=== PATIENT | female | born 1980 | race Caucasian/White ===

== ENCOUNTER 2018-11-05 15:12 | Emergency (ER) | payer OTHER ==
--- NOTE | 2018-11-05 16:27 | EDM.PDOC ---
ED HPI GENERAL MEDICAL PROBLEM - General Chief Complaint: SORT MANAGER Problem Stated Complaint: POSSIBLE MISCARRIAGE Time Seen by Provider: 11/05/18 15:34 Source of Information: Reports: Patient History Limitations: Reports: No Limitations - History of Present Illness INITIAL COMMENTS - FREE TEXT/NARRATIVE: Pt noticed vaginal bleeding today Is approximately 12 weeks HAs been seen in [place] for the Some mild cramping Onset: Sudden Duration: Hour(s):, Getting Worse Location: Reports: Abdomen, Pelvis - Related Data Allergies Allergy/AdvReac Type Severity Reaction Status Date / Time amoxicillin [From Augmentin] Allergy Hives Verified 11/05/18 15:52 clavulanic acid Allergy Hives Verified 11/05/18 15:52 [From Augmentin] Sulfa (Sulfonamide Allergy Hives Verified 11/05/18 15:52 Antibiotics) Home Meds: Home Meds PNV95/Ferrous Fumarate/FA [ Tablet] 1 each PO DAILY 11/05/18 [History] 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: Social & Family History - Tobacco Use Smoking Status *Q: Unknown Ever Smoked ED ROS GENERAL - Review of Systems Review Of Systems: See Below HEENT: Reports: No Symptoms Respiratory: Reports: No Symptoms Cardiovascular: Reports: No Symptoms : Reports: Other (Vaginal bleeding) ED EXAM - Physical Exam Exam: See Below GI/Abdominal Exam: Tender Course - Vital Signs Last Recorded V/S: Last Vital Signs Temp 37.3 C 11/05/18 15:25 Pulse 83 11/05/18 15:25 Resp 16 11/05/18 15:25 BP 107/74 11/05/18 15:25 Pulse Ox 99 11/05/18 15:25 - Orders/Labs/Meds Orders: Active Orders 24 hr Category Date Time Status [facility] [REF] Stat Lab 11/05/18 15:55 Received Labs: Laboratory Tests 11/05/18 Range/Units 15:55 WBC 8.0 (4.0-10.0) x10^3/uL RBC 4.33 (4.00-5.50) x10^6/uL Hgb 13.1 (12.0-16.0) g/dL Hct 38.2 (33.0-47.0) % MCV 88.2 (78.0-93.0) fL MCH 30.3 (26.0-32.0) pg MCHC 34.3 (32.0-36.0) g/dL RDW Coeff of Kim 13.0 (10.0-15.0) % Plt Count 230 (130-400) x10^3/uL Neut % (Auto) 61.5 (50.0-80.0) % Lymph % (Auto) 29.3 (25.0-50.0) % Mellette % (Auto) 8.4 (2.0-11.0) % Eos % (Auto) 0.5 (0.0-4.0) % Baso % (Auto) 0.3 (0.2-1.2) % - Re-Assessments/Exams Free Text/Narrative Re-Assessment/Exam: 11/05/18 16:23 Quantitative HCG pending Pt desires to follow up with usual provider in AM Will get ultrasound and Rhogam if needed Pt declines transfer for US today Departure - Departure Time of Disposition: 16:30 Disposition: Home, Self-Care 01 Clinical Impression: Vaginal bleeding during - Discharge Information *PRESCRIPTION DRUG MONITORING PROGRAM REVIEWED*: Not Applicable *COPY OF PRESCRIPTION DRUG MONITORING REPORT IN PATIENT DELPHINE: Not Applicable Instructions: Vaginal Bleeding During , First Trimester Referrals: PCP,Not In Area [Primary Care Provider] - - My Orders Last 24 Hours: My Active Orders 11/05/18 15:55 [facility] [place]REF] Stat - Assessment/Plan Last 24 Hours: My Active Orders 11/05/18 15:55 [facility] [REF] Stat
== END 2018-11-05 16:35 | disposition home or self-care (01) ==
LOC: VM.ED 15:12
DX: O20.9 Hemorrhage in early pregnancy, unspecified (principal); Z88.1 Allergy status to other antibiotic agents; Z88.8 Allergy status to other drugs, medicaments and biological substances; Z79.899 Other long term (current) drug therapy; Z3A.12 12 weeks gestation of pregnancy
CPT/HCPCS: 36415; 84702; 85025; 99284